=== PATIENT | male | born 1955 | race Caucasian/White ===

== ENCOUNTER 2020-03-24 05:57 | Inpatient (IN) | payer OTHER ==
[~2020-03-24] VITALS: Ht 180.3 cm; Wt 96.0 kg
[2020-03-24] VITALS (13 sets, daily range): BP systolic 116–166; BP diastolic 63–95
[2020-03-24] MEDS ORDERED: LORazepam 0.5 MG tablet PO PRN (06:15)
[2020-03-24] MEDS ORDERED: LIDOcaine/PRILOcaine 5gm cream TP ONE (06:15)
[2020-03-24] MEDS ORDERED: diphenhydrAMINE 25mg capsule PO PRN (06:15)
[2020-03-24] MEDS ORDERED: SIMV10TA98 PO (06:20)
[2020-03-24] MEDS ORDERED: BENA10TA74 PO (06:20)
[2020-03-24] MEDS ORDERED: ASPI81TA52 PO (06:20)
[2020-03-24] MEDS ORDERED: METO25TA6 PO (06:20)
[2020-03-24 06:52] LABS: BASOPHILS # (AUTO) 0.1 X10'3 (0-0.2); BASOPHILS % (AUTO) 0.9 % (0-1); EOSINOPHILS # (AUTO) 0.3 X10'3 (0-0.9); EOSINOPHILS % (AUTO) 3.4 % (0-6); HEMATOCRIT 44.5 % (42.0-52.0); LYMPHOCYTES # (AUTO) 2.1 X10'3 (1.1-4.8); LYMPHOCYTES % (AUTO) 28.6 % (21-51); MEAN CORPUSCULAR HEMOGLOBIN 30.2 PG (27.0-31.0); MEAN CORPUSCULAR HGB CONC 33.8 g/dL (33.0-36.5); MEAN CORPUSCULAR VOLUME 89.4 FL (78-98); MEAN PLATELET VOLUME 9.6 FL (7.4-10.4); MONOCYTES # (AUTO) 0.9 X10'3 (0-0.9); MONOCYTES % (AUTO) 12.3 % (2-12); NEUTROPHILS # (AUTO) 4.1 X10'3 (1.8-7.7); NEUTROPHILS % (AUTO) 54.8 % (42-75); PLATELET COUNT 192 X10'3 (140-440); RED BLOOD COUNT 4.98 X10'6 (4.70-6.10); RED CELL DISTRIBUTION WIDTH 13.1 % (11.5-14.5); WHITE BLOOD COUNT 7.4 X10'3 (4.5-11.0)
[2020-03-24] MEDS: normal saline 1,000 ML IV SCH ×2 (07:04→16:15)
[2020-03-24] MEDS ORDERED: LIDOcaine 1% (10mg/ml)w/preservative injection 20ml MDV ONE (07:26)
[2020-03-24] MEDS ORDERED: fentaNYL/PF 50MCG/1 ML 2ML syringe ONE (07:26)
[2020-03-24] MEDS ORDERED: heparin 1,000unit/ml 10ml vial 10 ML ONE (07:26)
[2020-03-24] MEDS ORDERED: verapamil 2.5 mg/ml inj IV ONE (07:26)
[2020-03-24] MEDS ORDERED: nitroGLYCERIN-Tridil 50MG/D5W 250 ML IV ONE (07:26)
[2020-03-24] MEDS ORDERED: iohexol 350MG/ML 100ml bottle IV ONE (07:26)
[2020-03-24] MEDS ORDERED: midazolam 2 mg/2 ml injection ONE ×2 (07:26→07:47)
[2020-03-24 07:34] LABS: ALBUMIN 3.6 G/DL (3.4-5.0); ANION GAP 7 (8-16); BLOOD UREA NITROGEN 21 MG/DL (7-18); BUN/CREATININE RATIO 16.9 (5.4-32.0); CALCIUM 8.9 MG/DL (8.5-10.1); CHLORIDE 106 MMOL/L (99-107); CREATININE 1.24 MG/DL (0.60-1.10); GLUCOSE 102 MG/DL (70-104); SODIUM 139 MMOL/L (135-145); TOTAL CARBON DIOXIDE 26.4 MMOL/L (24-32); eGFR 59 ML/MIN
[2020-03-24] MEDS ORDERED: OXAZEpam 15mg capsule PO PRN (09:35)
[2020-03-24] MEDS ORDERED: HYDROcodone/acetaminophen 5mg/325mg tablet PO PRN (09:35)
[2020-03-24] MEDS: normal saline 1000ml 1,000 ML IV SCH ×5 (09:35→19:41)
[2020-03-24] MEDS ORDERED: nitroGLYCERIN 0.4mg SUBLingual tab SL PRN (09:35)
[2020-03-24] MEDS ORDERED: ondansetron/PF 4mg/2ml inj IV PRN ×2 (09:35→12:40)
[2020-03-24] MEDS ORDERED: proCHLORperazine 10 MG/2 ml inj IV PRN (09:35)
[2020-03-24] MEDS ORDERED: HYDROcodone/acetaminophen 10/325mg tab PO PRN (09:35)
[2020-03-24] MEDS ORDERED: magnesium 4gm in 100ml NS 100 ML IV PRN (12:40)
[2020-03-24] MEDS ORDERED: magnesium 2GM in 50ml NS 50 ML IV PRN (12:40)
[2020-03-24] MEDS ORDERED: magnesium Cl slow-release 64mg tablet PO PRN (12:40)
[2020-03-24] MEDS ORDERED: potassium Cl 20 mEq SR tablet PO PRN ×2 (12:40)
[2020-03-24] MEDS ORDERED: mag hydrox/Alum hydrox/simeth 30ml oral suspension PO PRN (12:40)
[2020-03-24] MEDS ORDERED: potassium CL 10mEq/100ml bag 100 ML IV PRN ×2 (12:40)
[2020-03-24] MEDS ORDERED: acetaminophen 325mg tablet PO PRN (12:40)
[2020-03-24] MEDS ORDERED: magnesium hydroxide 30ml (MOM) UD suspension PO PRN (12:40)
--- NOTE | 2020-03-24 13:05 | NUR ---
Report received on patient from KIMI Young in short stay. Awaiting patient arrival on floor.
[2020-03-24] MEDS ORDERED: ringers solution, lacted 1,000 ML IV ONE (13:06)
--- NOTE | 2020-03-24 13:07 | NUR ---
Problems reprioritized. Patient report given, questions answered & plan of care reviewed with Yamilex BOLDEN.
--- NOTE | 2020-03-24 14:00 | NUR ---
Patient admitted to PCU 3117X. Patient amb[facility] from wheelchair to [facility], no signs of distress. Patient has no complaints of pain at this time, admit VS taken and are stable. MRSA swab taken. 2 RN skin check performed. IV NS infusing at ordered rate. Patient oriented to room and call light use. Tele monitor applied. Will continue to monitor.
--- NOTE | 2020-03-24 18:03 | NUR ---
Problems reprioritized. Patient report given, questions answered & plan of care reviewed with Calos BOLDEN.
--- NOTE | 2020-03-24 18:10 | NUR ---
Patient in room PCU 3025. I have received report from Yamilex BOLDEN and had the opportunity to ask questions and assume patient care.
[2020-03-24] MEDS: K and/or MAG REPLACEMENT MC SCH (19:27)
[2020-03-24] MEDS: heparin, porcine 5000 units/ml vial SQ SCH (19:40)
[2020-03-25 02:00] VITALS: BP 137/73
[2020-03-25] MEDS: normal saline 1,000 ML IV SCH ×3 (02:15→22:15)
[2020-03-25] MEDS ORDERED: aminocaproic acid 250 MG/1 ML inj. ONE (03:00)
[2020-03-25] MEDS ORDERED: albumin (human) 25% 100 ML IV solution IV ONE (03:00)
[2020-03-25] MEDS ORDERED: heparin 10,000 units/1 ML INJ ONE (03:00)
[2020-03-25] MEDS ORDERED: methylPREDNISolone sod succ 1000mg vial ONE (03:00)
[2020-03-25] MEDS ORDERED: calcium chloride 100 MG/1 ML inj IV ONE (03:00)
[2020-03-25] MEDS ORDERED: phenylephrine 10mg/ml inj. ONE (03:00)
[2020-03-25] MEDS ORDERED: LIDOcaine 2% (20 mg/ml) 5ml cardiac syringe ONE (03:00)
[2020-03-25] MEDS ORDERED: sodium bicarbonate 1 mEq/ml 50ml vial IV ONE (03:00)
[2020-03-25 05:35] LABS: BASOPHILS # (AUTO) 0.1 X10'3 (0-0.2); BASOPHILS % (AUTO) 0.6 % (0-1); EOSINOPHILS # (AUTO) 0.2 X10'3 (0-0.9); HEMATOCRIT 44.5 % (42.0-52.0); LYMPHOCYTES # (AUTO) 2.1 X10'3 (1.1-4.8); LYMPHOCYTES % (AUTO) 26.1 % (21-51); MEAN CORPUSCULAR HGB CONC 33.6 g/dL (33.0-36.5); MEAN CORPUSCULAR VOLUME 89.3 FL (78-98); MEAN PLATELET VOLUME 9.5 FL (7.4-10.4); MONOCYTES # (AUTO) 0.8 X10'3 (0-0.9); NEUTROPHILS % (AUTO) 60.3 % (42-75); PLATELET COUNT 196 X10'3 (140-440); RED BLOOD COUNT 4.99 X10'6 (4.70-6.10); RED CELL DISTRIBUTION WIDTH 13.4 % (11.5-14.5); WHITE BLOOD COUNT 8.2 X10'3 (4.5-11.0)
[2020-03-25 06:00] VITALS: BP 139/79
[2020-03-25] MEDS ORDERED: LORazepam 2 mg/ml vial IV ONE (06:00)
[2020-03-25] MEDS ORDERED: famotidine 20mg tablet PO ONE (06:00)
[2020-03-25 06:12] LABS: ALANINE AMINOTRANSFERASE 26 U/L (12-78); ALBUMIN 3.2 G/DL (3.4-5.0); ALKALINE PHOSPHATASE 78 IU/L (46-116); ANION GAP 8 (8-16); ASPARTATE AMINO TRANSFERASE 14 U/L (10-37); BILIRUBIN,TOTAL 0.5 MG/DL (0.1-1.0); BLOOD UREA NITROGEN 22 MG/DL (7-18); CALCIUM 8.9 MG/DL (8.5-10.1); CHLORIDE 106 MMOL/L (99-107); CHOL/HDL RATIO 5.2 (0.00-4.99); CHOLESTEROL 124 MG/DL (0-200); CREATININE 1.16 MG/DL (0.60-1.10); GLUCOSE 98 MG/DL (70-104); HDL CHOLESTEROL 24 MG/DL (35-60); LDL CHOLESTEROL 84 MG/DL (50-100); MAGNESIUM 1.8 MG/DL (1.5-2.4); SODIUM 139 MMOL/L (135-145); TOTAL CARBON DIOXIDE 25.3 MMOL/L (24-32); TOTAL PROTEIN 6.4 G/DL (6.4-8.2); TRIGLYCERIDES 153 MG/DL (20-135); eGFR 63 ML/MIN
--- NOTE | 2020-03-25 06:22 | NUR ---
Problems reprioritized. Patient report given, questions answered & plan of care reviewed with Dyan BOLDEN.
--- NOTE | 2020-03-25 06:30 | NUR ---
Patient in room PCU 3025. I have received report from Calos BOLDEN and had the opportunity to ask questions and assume patient care.
[2020-03-25 07:34] LABS: BASOPHILS % (AUTO) 0.4 % (0-1); EOSINOPHILS # (AUTO) 0.2 X10'3 (0-0.9); EOSINOPHILS % (AUTO) 2.8 % (0-6); HEMATOCRIT 44.8 % (42.0-52.0); HEMOGLOBIN 15.4 g/dl (14.0-17.9); LYMPHOCYTES # (AUTO) 2.2 X10'3 (1.1-4.8); MEAN CORPUSCULAR HEMOGLOBIN 30.7 PG (27.0-31.0); MEAN CORPUSCULAR HGB CONC 34.3 g/dL (33.0-36.5); MEAN CORPUSCULAR VOLUME 89.4 FL (78-98); MEAN PLATELET VOLUME 9.8 FL (7.4-10.4); MONOCYTES # (AUTO) 0.9 X10'3 (0-0.9); MONOCYTES % (AUTO) 11.5 % (2-12); NEUTROPHILS # (AUTO) 4.7 X10'3 (1.8-7.7); NEUTROPHILS % (AUTO) 58.3 % (42-75); PLATELET COUNT 196 X10'3 (140-440); RED BLOOD COUNT 5.01 X10'6 (4.70-6.10); RED CELL DISTRIBUTION WIDTH 13.3 % (11.5-14.5)
[2020-03-25 07:54] LABS: ALANINE AMINOTRANSFERASE 27 U/L (12-78); ALBUMIN 3.5 G/DL (3.4-5.0); ALBUMIN/GLOBULIN RATIO 1.1 (1.1-1.5); ALKALINE PHOSPHATASE 82 IU/L (46-116); ANION GAP 5 (8-16); ASPARTATE AMINO TRANSFERASE 16 U/L (10-37); BILIRUBIN,TOTAL 0.6 MG/DL (0.1-1.0); BLOOD UREA NITROGEN 20 MG/DL (7-18); BUN/CREATININE RATIO 16.7 (5.4-32.0); CALCIUM 8.6 MG/DL (8.5-10.1); CHLORIDE 105 MMOL/L (99-107); GLUCOSE 94 MG/DL (70-104); POTASSIUM 3.9 MMOL/L (3.5-5.1); SODIUM 138 MMOL/L (135-145); TOTAL CARBON DIOXIDE 28.4 MMOL/L (24-32); TOTAL PROTEIN 6.6 G/DL (6.4-8.2); eGFR 61 ML/MIN
[2020-03-25] MEDS: K and/or MAG REPLACEMENT MC SCH ×2 (08:00→19:24)
[2020-03-25] MEDS: heparin, porcine 5000 units/ml vial SQ SCH ×2 (10:14→19:26)
[2020-03-25 11:00] VITALS: BP 135/81
[2020-03-25 11:05] LABS: HEMOGLOBIN A1C 5.7 % (4.5-6.2)
[2020-03-25] MEDS: normal saline 1000ml 1,000 ML IV SCH ×2 (12:26→15:35)
[2020-03-25 15:00] VITALS: BP 142/81
[2020-03-25 18:00] VITALS: BP 142/92
--- NOTE | 2020-03-25 18:06 | NUR ---
Patient in room PCU 3025. I have received report from Dyan BOLDEN and had the opportunity to ask questions and assume patient care.
--- NOTE | 2020-03-25 18:06 | NUR ---
Problems reprioritized. Patient report given, questions answered & plan of care reviewed with Calos BOLDEN.
[2020-03-25] MEDS: metoprolol tartrate 25mg tablet PO SCH (19:25)
[2020-03-25] MEDS ORDERED: metoprolol tartrate 25mg tablet PO SCH (20:00)
[2020-03-25 22:00] VITALS: BP 111/75
[2020-03-26] MEDS: normal saline 1000ml 1,000 ML IV SCH ×3 (01:35→10:52)
[2020-03-26 02:00] VITALS: BP 140/74
[2020-03-26 06:00] VITALS: BP 142/86
[2020-03-26 06:10] LABS: BASOPHILS % (AUTO) 0.5 % (0-1); EOSINOPHILS # (AUTO) 0.3 X10'3 (0-0.9); EOSINOPHILS % (AUTO) 3.3 % (0-6); HEMATOCRIT 45.3 % (42.0-52.0); HEMOGLOBIN 15.6 g/dl (14.0-17.9); LYMPHOCYTES # (AUTO) 2.2 X10'3 (1.1-4.8); LYMPHOCYTES % (AUTO) 26.4 % (21-51); MEAN CORPUSCULAR HEMOGLOBIN 30.7 PG (27.0-31.0); MEAN CORPUSCULAR HGB CONC 34.4 g/dL (33.0-36.5); MEAN CORPUSCULAR VOLUME 89.1 FL (78-98); MEAN PLATELET VOLUME 9.8 FL (7.4-10.4); MONOCYTES # (AUTO) 0.9 X10'3 (0-0.9); MONOCYTES % (AUTO) 11.3 % (2-12); NEUTROPHILS # (AUTO) 4.8 X10'3 (1.8-7.7); NEUTROPHILS % (AUTO) 58.5 % (42-75); PLATELET COUNT 203 X10'3 (140-440); RED BLOOD COUNT 5.09 X10'6 (4.70-6.10); RED CELL DISTRIBUTION WIDTH 13.2 % (11.5-14.5); WHITE BLOOD COUNT 8.3 X10'3 (4.5-11.0)
--- NOTE | 2020-03-26 06:30 | NUR ---
Patient in room PCU 3010. I have received report from KIMI DIANE and had the opportunity to ask questions and assume patient care.
--- NOTE | 2020-03-26 06:42 | NUR ---
Problems reprioritized. Patient report given, questions answered & plan of care reviewed with Lalo RN.
[2020-03-26 06:46] LABS: ALANINE AMINOTRANSFERASE 26 U/L (12-78); ALBUMIN 3.5 G/DL (3.4-5.0); ALBUMIN/GLOBULIN RATIO 1.1 (1.1-1.5); ALKALINE PHOSPHATASE 82 IU/L (46-116); ANION GAP 8 (8-16); ASPARTATE AMINO TRANSFERASE 16 U/L (10-37); BILIRUBIN,TOTAL 0.6 MG/DL (0.1-1.0); BLOOD UREA NITROGEN 16 MG/DL (7-18); BUN/CREATININE RATIO 13.6 (5.4-32.0); CALCIUM 9.4 MG/DL (8.5-10.1); CHLORIDE 104 MMOL/L (99-107); CREATININE 1.18 MG/DL (0.60-1.10); GLUCOSE 93 MG/DL (70-104); MAGNESIUM 1.9 MG/DL (1.5-2.4); POTASSIUM 4.1 MMOL/L (3.5-5.1); SODIUM 138 MMOL/L (135-145); TOTAL CARBON DIOXIDE 26.1 MMOL/L (24-32); TOTAL PROTEIN 6.8 G/DL (6.4-8.2); eGFR 62 ML/MIN
[2020-03-26] MEDS ORDERED: atorvastatin 10mg tablet PO SCH (08:00)
[2020-03-26] MEDS ORDERED: aspirin 81mg tablet.DR PO SCH (08:00)
[2020-03-26] MEDS: K and/or MAG REPLACEMENT MC SCH ×2 (08:00→20:00)
[2020-03-26] MEDS ORDERED: lisinopril 10 MG tablet PO SCH (08:00)
[2020-03-26] MEDS: metoprolol tartrate 25mg tablet PO SCH ×2 (08:30→21:04)
[2020-03-26] MEDS: heparin, porcine 5000 units/ml vial SQ SCH ×2 (08:33→21:05)
[2020-03-26] MEDS ORDERED: MALTODEXTRIN/FRUCTOSE 0.68 KCAL/ML LIQUID 296ML BOTTLE PO ONE (09:30)
[2020-03-26] MEDS ORDERED: dextrose 50%-water 50ml dispensing syringe IV PRN (09:30)
[2020-03-26 11:00] VITALS: BP 142/83
[2020-03-26 13:21] LABS: CLARITY,URINE CLEAR (Clear); COLOR,URINE YELLOW (Yellow); GLUCOSE, URINE NEGATIVE (Neg); KETONES,URINE NEGATIVE (Neg); LEUKOCYTE ESTERASE ,URINE NEGATIVE (Neg); NITRITES, URINE NEGATIVE (Neg); OCCULT BLOOD,URINE NEGATIVE (Neg); PROTEIN,URINE NEGATIVE (Neg)
[2020-03-26 13:25] LABS: UA COLLECTION TYPE NON-SPECIFIED
[2020-03-26 15:00] VITALS: BP 138/79
[2020-03-26 18:00] VITALS: BP 149/82
--- NOTE | 2020-03-26 18:17 | NUR ---
Patient in room PCU 3010. I have received report from ABRAHAM BOLDEN and had the opportunity to ask questions and assume patient care.
--- NOTE | 2020-03-26 18:59 | NUR ---
REVIEWING CHECKLIST FOR 1ST CASE CABG IN AM- BLOOD BANK AND RT CALLED, REVIEWING CHECKLIST FOR ALL PRE-PROCEDURE NEEDS; DISCUSSED PRE AND P[OST OPERATIVE CARE AND REVIEWED CONSENT WITH PATIENT.
[2020-03-26 20:15] LABS: ABG BASE EXCESS 0.1 mmol/L (-2.0-3.0); ABG OXYGEN SATURATION 93.7 % (95-98); ABG PH (T) 7.461 (7.350-7.450); ABG PO2 (T) 64.4 mmHg (83-108); ALLEN'S TEST POSITIVE; FCOHb 0.4 % (0.5-1.5); FMetHb 0.1 % (0.3-1.12); FO2Hb 93.2 % (94-100); TOTAL HEMOGLOBIN 16.2 G/dl (14.0-17.9)
[2020-03-26 23:00] VITALS: BP 133/79
[2020-03-27] VITALS (18 sets, daily range): BP systolic 102–239; BP diastolic 49–77
[2020-03-27 02:45] LABS: PRE OP PROTIME 10.3 SECONDS (9.0-12.0)
[2020-03-27 02:46] LABS: ALANINE AMINOTRANSFERASE 32 U/L (12-78); ALBUMIN 3.6 G/DL (3.4-5.0); ALBUMIN/GLOBULIN RATIO 1.1 (1.1-1.5); ALKALINE PHOSPHATASE 88 IU/L (46-116); ANION GAP 8 (8-16); ASPARTATE AMINO TRANSFERASE 20 U/L (10-37); BILIRUBIN,TOTAL 0.5 MG/DL (0.1-1.0); BLOOD UREA NITROGEN 18 MG/DL (7-18); BUN/CREATININE RATIO 16.4 (5.4-32.0); CALCIUM 9.5 MG/DL (8.5-10.1); CHLORIDE 104 MMOL/L (99-107); GLUCOSE 99 MG/DL (70-104); SODIUM 137 MMOL/L (135-145); TOTAL CARBON DIOXIDE 24.8 MMOL/L (24-32); eGFR 67 ML/MIN
[2020-03-27 02:51] LABS: BASOPHILS # (AUTO) 0.1 X10'3 (0-0.2); BASOPHILS % (AUTO) 0.7 % (0-1); EOSINOPHILS # (AUTO) 0.3 X10'3 (0-0.9); EOSINOPHILS % (AUTO) 3.7 % (0-6); HEMATOCRIT 47.6 % (42.0-52.0); LYMPHOCYTES # (AUTO) 2.4 X10'3 (1.1-4.8); LYMPHOCYTES % (AUTO) 26.8 % (21-51); MEAN CORPUSCULAR HEMOGLOBIN 30.3 PG (27.0-31.0); MEAN CORPUSCULAR HGB CONC 33.6 g/dL (33.0-36.5); MEAN PLATELET VOLUME 9.8 FL (7.4-10.4); MONOCYTES # (AUTO) 1.1 X10'3 (0-0.9); MONOCYTES % (AUTO) 12.1 % (2-12); NEUTROPHILS % (AUTO) 56.7 % (42-75); PLATELET COUNT 212 X10'3 (140-440); RED BLOOD COUNT 5.28 X10'6 (4.70-6.10); RED CELL DISTRIBUTION WIDTH 13.7 % (11.5-14.5); WHITE BLOOD COUNT 8.8 X10'3 (4.5-11.0)
[2020-03-27] MEDS ORDERED: mupirocin 2% nasal ointment 1gm UD NS SCH (05:00)
[2020-03-27] MEDS ORDERED: ceFAZolin 1000mg inj ONE (05:10)
[2020-03-27] MEDS ORDERED: cefazolin/dext.iso 2gm/50ml 50 ML IV ONE (05:30)
[2020-03-27] MEDS ORDERED: vancomycin/NS 1 GM ADD-VANTAGE 250 ML IV ONE (05:30)
[2020-03-27] MEDS ORDERED: gabapentin 400mg capsule PO ONE (05:30)
[2020-03-27] MEDS ORDERED: MIDAZolam 1mg/ml 10ml vial ONE (06:41)
[2020-03-27] MEDS ORDERED: fentaNYL /PF 50mcg/ml 5ml ampule ONE ×5 (06:41→09:23)
--- NOTE | 2020-03-27 06:41 | NUR ---
Patient in room PCU 3010. I have received report from Suzanne BOLDEN and had the opportunity to ask questions and assume patient care.
[2020-03-27] MEDS ORDERED: LIDOcaine 2% (20mg/ml) 5ml vial ONE (06:43)
[2020-03-27] MEDS ORDERED: pancuronium br 1mg/ml inj IV ONE (06:43)
[2020-03-27] MEDS ORDERED: propofol inj 20 ML IV ONE (06:43)
[2020-03-27] MEDS ORDERED: sevoflurane 250ml liquid IH ONE (06:50)
[2020-03-27] MEDS ORDERED: aminocaproic acid 250 MG/1 ML inj. ONE (06:50)
[2020-03-27] MEDS ORDERED: DOPamine/D5W 400mg/250ml bag IV ONE (06:50)
[2020-03-27] MEDS ORDERED: protamine sulf. 10mg/ml inj. IV ONE (06:50)
[2020-03-27] MEDS ORDERED: labetalol 20mg/4ml (5mg/ml) syringe IV ONE ×2 (06:50→07:41)
[2020-03-27] MEDS ORDERED: phenylephrine 10mg/ml inj. ONE (06:50)
[2020-03-27] MEDS ORDERED: nitroGLYCERIN in D5W 50mg/250ml (Tridil) infusion IV ONE (06:50)
--- NOTE | 2020-03-27 06:53 | NUR ---
Problems reprioritized. Patient report given, questions answered & plan of care reviewed with SHANE BOLDEN.
[2020-03-27] MEDS ORDERED: ePHEDrine 50MG/ML INJ. ONE (07:04)
[2020-03-27 07:21] LABS: ABG BASE EXCESS -2.1 mmol/L (-2.0-3.0); ABG HCO3 22.3 mmol/L (22.0-26.0); ABG OXYGEN SATURATION 99.4 % (95-98); ABG PH 7.397 (7.350-7.450); ABG PO2 273.4 mmHg (60.0-100.0); CL (ABG) 103 mmol/L (99-107); FCOHb 0.4 % (0.5-1.5); FMetHb 0.3 % (0.3-1.12); FO2Hb 98.7 % (94-100); GLUCOSE (ABG) 93 mg/dl (70-104); IONIZED CA (ABG) 1.17 mmol/L (1.03-1.32); K (ABG) 3.7 mmol/L (3.3-5.1); NA (ABG) 134 mmol/L (135-145); TOTAL HEMOGLOBIN 15.5 G/dl (14.0-17.9)
[2020-03-27] MEDS ORDERED: heparin 10,000 units/1 ML INJ IR ONE (07:43)
[2020-03-27] MEDS ORDERED: papaverine 30 mg/ml 2ml inj. IA ONE (07:43)
[2020-03-27 07:50] LABS: ACT @ 1.70 U 245 SEC (193-297); ACT @ 2.84 U 307 SEC (260-420); BASELINE ACT 149 SEC (101-148); PATIENT WEIGHT 93.0k KG
[2020-03-27] MEDS ORDERED: dextrose 50%-water 50ml dispensing syringe IV ONE (08:14)
[2020-03-27 08:16] LABS: ABG BASE EXCESS VENOUS -5.6 mmol/L; ABG HCO3 VENOUS 19.5 mmol/L; ABG PCO2 VENOUS 36.9 mmHg; ABG PO2 VENOUS 42.3 mmHg; CL (ABG) 102 mmol/L (99-107); FCOHb VENOUS 0.7 %; FHHb VENOUS 21.8 %; FMetHb VENOUS 0.1 %; FO2Hb VENOUS 77.4 %; GLUCOSE (ABG) 66 mg/dl (70-104); IONIZED CA (ABG) 1.14 mmol/L (1.03-1.32); K (ABG) 3.9 mmol/L (3.3-5.1); NA (ABG) 131 mmol/L (135-145); TOTAL HEMOGLOBIN 12.2 G/dl (14.0-17.9)
[2020-03-27 08:35] LABS: ABG BASE EXCESS -0.1 mmol/L (-2.0-3.0); ABG HCO3 24.2 mmol/L (22.0-26.0); ABG OXYGEN SATURATION 99.7 % (95-98); ABG PCO2 38.1 mmHg (35.0-45.0); ABG PH 7.421 (7.350-7.450); ABG PO2 399.1 mmHg (60.0-100.0); CL (ABG) 99 mmol/L (99-107); FCOHb 0.3 % (0.5-1.5); FMetHb 0.3 % (0.3-1.12); FO2Hb 99.1 % (94-100); GLUCOSE (ABG) 126 mg/dl (70-104); IONIZED CA (ABG) 1.02 mmol/L (1.03-1.32); K (ABG) 4.7 mmol/L (3.3-5.1); NA (ABG) 130 mmol/L (135-145); TOTAL HEMOGLOBIN 11.3 G/dl (14.0-17.9)
[2020-03-27 08:40] LABS: ABG BASE EXCESS VENOUS -1.5 mmol/L; ABG HCO3 VENOUS 23.1 mmol/L; ABG PCO2 VENOUS 38.5 mmHg; ABG PO2 VENOUS 59.1 mmHg; CL (ABG) 99 mmol/L (99-107); FCOHb VENOUS 0.8 %; FHHb VENOUS 9.8 %; FMetHb VENOUS 0.3 %; FO2Hb VENOUS 89.1 %; GLUCOSE (ABG) 122 mg/dl (70-104); IONIZED CA (ABG) 1.05 mmol/L (1.03-1.32); K (ABG) 4.6 mmol/L (3.3-5.1); NA (ABG) 130 mmol/L (135-145); TOTAL HEMOGLOBIN 11.8 G/dl (14.0-17.9)
[2020-03-27 09:06] LABS: ABG HCO3 29.7 mmol/L (22.0-26.0); ABG OXYGEN SATURATION 98.8 % (95-98); ABG PCO2 44.8 mmHg (35.0-45.0); ABG PO2 234.9 mmHg (60.0-100.0); CL (ABG) 97 mmol/L (99-107); FCOHb 0.3 % (0.5-1.5); FMetHb 0.6 % (0.3-1.12); FO2Hb 97.9 % (94-100); GLUCOSE (ABG) 118 mg/dl (70-104); IONIZED CA (ABG) 0.98 mmol/L (1.03-1.32); K (ABG) 4.7 mmol/L (3.3-5.1); NA (ABG) 129 mmol/L (135-145); TOTAL HEMOGLOBIN 11.4 G/dl (14.0-17.9)
[2020-03-27] MEDS ORDERED: heparin 1,000unit/ml 10ml vial 10 ML ONE (09:23)
[2020-03-27 09:26] LABS: ABG BASE EXCESS 0.2 mmol/L (-2.0-3.0); ABG HCO3 25.1 mmol/L (22.0-26.0); ABG OXYGEN SATURATION 97.2 % (95-98); ABG PCO2 41.4 mmHg (35.0-45.0); ABG PO2 105.9 mmHg (60.0-100.0); CL (ABG) 100 mmol/L (99-107); FCOHb 0.3 % (0.5-1.5); FMetHb 0.5 % (0.3-1.12); FO2Hb 96.4 % (94-100); GLUCOSE (ABG) 120 mg/dl (70-104); IONIZED CA (ABG) 1.54 mmol/L (1.03-1.32); K (ABG) 5.2 mmol/L (3.3-5.1); NA (ABG) 129 mmol/L (135-145)
[2020-03-27] MEDS ORDERED: insulin glargine (Lantus) pen - multi-dose SQ PRN ×2 (09:30→10:20)
[2020-03-27 09:51] LABS: ABG BASE EXCESS VENOUS -1.8 mmol/L; ABG HCO3 VENOUS 22.2 mmol/L; ABG PO2 VENOUS 40.6 mmHg; CL (ABG) 101 mmol/L (99-107); FCOHb VENOUS 0.3 %; FHHb VENOUS 22.4 %; FMetHb VENOUS 0.7 %; FO2Hb VENOUS 76.6 %; GLUCOSE (ABG) 118 mg/dl (70-104); IONIZED CA (ABG) 1.22 mmol/L (1.03-1.32); K (ABG) 4.5 mmol/L (3.3-5.1); NA (ABG) 131 mmol/L (135-145); TOTAL HEMOGLOBIN 11.9 G/dl (14.0-17.9)
[2020-03-27] MEDS ORDERED: sodium phosphate inj. 30 MMOL in dextrose 5%-water 250 ML IV PRN (10:20)
[2020-03-27] MEDS ORDERED: nitroGLYCERIN-Tridil 50MG/D5W 250 ML IV PRN (10:20)
[2020-03-27] MEDS ORDERED: pantoprazole 40 MG vial IV ONE (10:20)
[2020-03-27] MEDS ORDERED: metoclopramide 5 mg/ml inj IV PRN (10:20)
[2020-03-27] MEDS ORDERED: Neutra Phos packet PO PRN (10:20)
[2020-03-27] MEDS ORDERED: acetaminophen 325mg tablet PO PRN ×2 (10:20)
[2020-03-27] MEDS ORDERED: Insulin Reg/NS 100units/100mL 100 ML IV SCH (10:20)
[2020-03-27] MEDS ORDERED: DOPamine 400mg/D5W 250ml 250 ML IV PRN (10:20)
[2020-03-27] MEDS ORDERED: dextrose 50%-water 50ml dispensing syringe IV PRN (10:20)
[2020-03-27] MEDS ORDERED: mineral oil 133ml enema RC PRN (10:20)
[2020-03-27] MEDS ORDERED: sodium phosphate inj. 15 MMOL in dextrose 5%-water 250 ML IV PRN (10:20)
[2020-03-27] MEDS ORDERED: magnesium hydroxide 30ml (MOM) UD suspension PO PRN (10:20)
[2020-03-27] MEDS ORDERED: morphine 4 MG/ML inj SYRINge IV PRN (10:20)
[2020-03-27] MEDS ORDERED: magnesium 2GM in 50ml NS 50 ML IV PRN (10:20)
[2020-03-27] MEDS ORDERED: HYDROcodone/acetaminophen 10/325mg tab PO PRN (10:20)
[2020-03-27] MEDS ORDERED: bisacodyl 10mg suppository rectal RC PRN (10:20)
[2020-03-27] MEDS ORDERED: ondansetron/PF 4mg/2ml inj IV PRN (10:20)
[2020-03-27] MEDS ORDERED: magnesium citrate 296ml oral solution PO PRN (10:20)
[2020-03-27] MEDS ORDERED: niCARDipine-NS 40mg/200ml IVPB 200 ML IV PRN (10:20)
[2020-03-27] MEDS ORDERED: potassium Cl 20 mEq SR tablet PO PRN (10:20)
[2020-03-27] MEDS ORDERED: normal saline 250ml IV soln 250 ML IV PRN (10:20)
--- NOTE | 2020-03-27 10:30 | NUR ---
Received to room , accompanied by MDs and surgical crew. Placed on ventilator, to grain combine driver, arterial line and PA line pressure monitored. Chest tubes to suction at 20 cm. Lee cath to gravity drainage. Dressings are dry and intact. See assessment record. All vasoactive drugs are infusing via central line.
[2020-03-27 10:45] LABS: ABG BASE EXCESS -1.7 mmol/L (-2.0-3.0); ABG HCO3 24.4 mmol/L (22.0-26.0); ABG OXYGEN SATURATION 95.9 % (95-98); ABG PCO2 (T) 46.5 mmHg (35.0-45.0); ABG PH (T) 7.338 (7.350-7.450); ABG PO2 (T) 84.5 mmHg (83-108); FCOHb 0.2 % (0.5-1.5); FMetHb 0.4 % (0.3-1.12); FO2Hb 95.3 % (94-100); PEEP 5 cm H2O; RESPIRATORY RATE 12 b/min; TIDAL VOLUME 650 mL; TOTAL HEMOGLOBIN 15.2 G/dl (14.0-17.9)
[2020-03-27] MEDS: sodium chloride 0.45% 1,000 ML IV SCH (10:53)
[2020-03-27 10:56] LABS: BASOPHILS % (AUTO) 0.2 % (0-1); EOSINOPHILS # (AUTO) 0.1 X10'3 (0-0.9); EOSINOPHILS % (AUTO) 0.7 % (0-6); HEMOGLOBIN 14.5 g/dl (14.0-17.9); LYMPHOCYTES # (AUTO) 1.3 X10'3 (1.1-4.8); LYMPHOCYTES % (AUTO) 7.1 % (21-51); MEAN CORPUSCULAR HGB CONC 33.6 g/dL (33.0-36.5); MEAN CORPUSCULAR VOLUME 89.4 FL (78-98); MEAN PLATELET VOLUME 9.2 FL (7.4-10.4); MONOCYTES # (AUTO) 1.1 X10'3 (0-0.9); MONOCYTES % (AUTO) 6.3 % (2-12); NEUTROPHILS # (AUTO) 15.5 X10'3 (1.8-7.7); NEUTROPHILS % (AUTO) 85.7 % (42-75); PLATELET COUNT 137 X10'3 (140-440); RED BLOOD COUNT 4.81 X10'6 (4.70-6.10); RED CELL DISTRIBUTION WIDTH 13.5 % (11.5-14.5); WHITE BLOOD COUNT 18.1 X10'3 (4.5-11.0)
[2020-03-27 11:06] LABS: PARTIAL THROMBOPLASTIN TIME 26 SECONDS (22-32)
[2020-03-27 11:18] LABS: ALANINE AMINOTRANSFERASE 23 U/L (12-78); ALBUMIN 3.3 G/DL (3.4-5.0); ALBUMIN/GLOBULIN RATIO 1.5 (1.1-1.5); ALKALINE PHOSPHATASE 57 IU/L (46-116); ANION GAP 7 (8-16); ASPARTATE AMINO TRANSFERASE 31 U/L (10-37); BLOOD UREA NITROGEN 13 MG/DL (7-18); BUN/CREATININE RATIO 11.8 (5.4-32.0); CALCIUM 8.7 MG/DL (8.5-10.1); CHLORIDE 106 MMOL/L (99-107); GLUCOSE 152 MG/DL (70-104); MAGNESIUM 2.3 MG/DL (1.5-2.4); PHOSPHORUS 1.6 MG/DL (2.3-4.5); SODIUM 140 MMOL/L (135-145); TOTAL CARBON DIOXIDE 26.8 MMOL/L (24-32); TOTAL PROTEIN 5.5 G/DL (6.4-8.2); eGFR 67 ML/MIN
[2020-03-27 11:19] LABS: POTASSIUM 4.3 MMOL/L (3.5-5.1)
[2020-03-27] MEDS: potassium Cl 20mEq/100mL bag 100 ML IV PRN ×4 (11:28→20:27)
[2020-03-27] MEDS: morphine 4 MG/ML inj SYRINge IV PRN ×4 (11:38→21:50)
--- NOTE | 2020-03-27 12:19 | NUR ---
CABG Consult: Pt s/p CABGx3; will need CABG/HH diet eds once clinically stable post-op. Addendum: 03/27/20 at [address] Amended: Links added.
--- NOTE | 2020-03-27 12:20 | NUR ---
Pt extubated. Voice quality good. Respirations are even and unlabored. Respiratory rate 16, SpO2 93% on 4 L/min O2 via NC, lungs CTA. Addendum: 03/27/20 at 1801 by Zackary Cardoza RN Wrong time. Pt extubated at 1720 hrs.
[2020-03-27 12:41] LABS: ACTIVATED CLOTTING TIME 112 SEC (101-148)
[2020-03-27] MEDS: albumin (Human) 5% 250ml 250 ML IV PRN ×3 (13:18→19:19)
[2020-03-27] MEDS: gabapentin 300mg capsule PO SCH ×2 (13:28→21:16)
[2020-03-27] MEDS: ceFAZolin 1GM/D5W- ADD-VANTAGE 50 ML IV SCH (16:41)
[2020-03-27 17:16] LABS: ABG BASE EXCESS -5.7 mmol/L (-2.0-3.0); ABG HCO3 17.1 mmol/L (22.0-26.0); ABG OXYGEN SATURATION 94.7 % (95-98); ABG PCO2 (T) 26.6 mmHg (35.0-45.0); ABG PH (T) 7.426 (7.350-7.450); ABG PO2 (T) 70.7 mmHg (83-108); FCOHb 0.1 % (0.5-1.5); FMetHb 0.1 % (0.3-1.12); FO2Hb 94.5 % (94-100); PEEP 5 cm H2O; TOTAL HEMOGLOBIN 13.5 G/dl (14.0-17.9)
--- NOTE | 2020-03-27 17:20 | NUR ---
Pt extubated. Voice quality good. Respirations are even and unlabored. Respiratory rate 16, SpO2 93% on 4 L/min O2 via NC, lungs CTA.
[2020-03-27 17:33] LABS: BASOPHILS % (AUTO) 0.1 % (0-1); EOSINOPHILS % (AUTO) 0 % (0-6); HEMATOCRIT 38.3 % (42.0-52.0); HEMOGLOBIN 12.8 g/dl (14.0-17.9); LYMPHOCYTES # (AUTO) 0.6 X10'3 (1.1-4.8); LYMPHOCYTES % (AUTO) 3.2 % (21-51); MEAN CORPUSCULAR HEMOGLOBIN 30.1 PG (27.0-31.0); MEAN CORPUSCULAR HGB CONC 33.5 g/dL (33.0-36.5); MEAN CORPUSCULAR VOLUME 89.9 FL (78-98); MEAN PLATELET VOLUME 9.2 FL (7.4-10.4); MONOCYTES # (AUTO) 1.2 X10'3 (0-0.9); MONOCYTES % (AUTO) 6.8 % (2-12); NEUTROPHILS # (AUTO) 15.7 X10'3 (1.8-7.7); NEUTROPHILS % (AUTO) 89.9 % (42-75); PLATELET COUNT 136 X10'3 (140-440); RED BLOOD COUNT 4.26 X10'6 (4.70-6.10); RED CELL DISTRIBUTION WIDTH 13.4 % (11.5-14.5); WHITE BLOOD COUNT 17.5 X10'3 (4.5-11.0)
[2020-03-27 17:50] LABS: ALBUMIN 3.4 G/DL (3.4-5.0); ANION GAP 13 (8-16); BLOOD UREA NITROGEN 14 MG/DL (7-18); BUN/CREATININE RATIO 9.9 (5.4-32.0); CALCIUM 7.8 MG/DL (8.5-10.1); CHLORIDE 108 MMOL/L (99-107); CREATININE 1.41 MG/DL (0.60-1.10); GLUCOSE 155 MG/DL (70-104); MAGNESIUM 1.8 MG/DL (1.5-2.4); PHOSPHORUS 2.1 MG/DL (2.3-4.5); POTASSIUM 4.1 MMOL/L (3.5-5.1); SODIUM 141 MMOL/L (135-145); TOTAL CARBON DIOXIDE 19.8 MMOL/L (24-32); eGFR 51 ML/MIN
--- NOTE | 2020-03-27 18:37 | NUR ---
Patient in room ICU 2039. I have received report from Reagan BOLDEN and had the opportunity to ask questions and assume patient care. Addendum: 03/27/20 at 1838 by Prerna Redding RN Amended: Links added.
[2020-03-27] MEDS: magnesium 4gm in 100ml NS 100 ML IV PRN (19:57)
[2020-03-27] MEDS: mupirocin 2% nasal ointment 1gm UD NS SCH (21:16)
[2020-03-27] MEDS: sennosides/docusate sodium tablet PO SCH (21:16)
[2020-03-27] MEDS: vancomycin/NS 1 GM ADD-VANTAGE 250 ML IV SCH (21:50)
[2020-03-28] VITALS (23 sets, daily range): BP systolic 104–134; BP diastolic 56–77
[2020-03-28] MEDS: ceFAZolin 1GM/D5W- ADD-VANTAGE 50 ML IV SCH ×3 (00:08→15:59)
--- NOTE | 2020-03-28 00:48 | NUR ---
Patient appears to be sleeping. Vital signs stable. Will continue to monitor.
[2020-03-28] MEDS: morphine 4 MG/ML inj SYRINge IV PRN (01:10)
[2020-03-28 03:00] LABS: BASOPHILS % (AUTO) 0.1 % (0-1); EOSINOPHILS % (AUTO) 0 % (0-6); HEMATOCRIT 36.6 % (42.0-52.0); HEMOGLOBIN 12.4 g/dl (14.0-17.9); LYMPHOCYTES # (AUTO) 0.8 X10'3 (1.1-4.8); LYMPHOCYTES % (AUTO) 4.5 % (21-51); MEAN CORPUSCULAR HEMOGLOBIN 30.5 PG (27.0-31.0); MEAN CORPUSCULAR HGB CONC 33.8 g/dL (33.0-36.5); MEAN CORPUSCULAR VOLUME 90.1 FL (78-98); MEAN PLATELET VOLUME 9.9 FL (7.4-10.4); MONOCYTES # (AUTO) 1.6 X10'3 (0-0.9); MONOCYTES % (AUTO) 8.5 % (2-12); NEUTROPHILS # (AUTO) 16.6 X10'3 (1.8-7.7); NEUTROPHILS % (AUTO) 86.9 % (42-75); PLATELET COUNT 127 X10'3 (140-440); RED BLOOD COUNT 4.06 X10'6 (4.70-6.10); RED CELL DISTRIBUTION WIDTH 13.6 % (11.5-14.5)
[2020-03-28 03:05] LABS: PARTIAL THROMBOPLASTIN TIME 26 SECONDS (22-32)
[2020-03-28 03:10] LABS: ALANINE AMINOTRANSFERASE 21 U/L (12-78); ALBUMIN 3.7 G/DL (3.4-5.0); ALBUMIN/GLOBULIN RATIO 1.8 (1.1-1.5); ALKALINE PHOSPHATASE 45 IU/L (46-116); ANION GAP 10 (8-16); ASPARTATE AMINO TRANSFERASE 32 U/L (10-37); BILIRUBIN,TOTAL 0.6 MG/DL (0.1-1.0); BLOOD UREA NITROGEN 13 MG/DL (7-18); BUN/CREATININE RATIO 11.5 (5.4-32.0); CHLORIDE 106 MMOL/L (99-107); CREATININE 1.13 MG/DL (0.60-1.10); GLUCOSE 140 MG/DL (70-104); MAGNESIUM 2.9 MG/DL (1.5-2.4); PHOSPHORUS 3.3 MG/DL (2.3-4.5); POTASSIUM 4.4 MMOL/L (3.5-5.1); SODIUM 140 MMOL/L (135-145); TOTAL CARBON DIOXIDE 23.7 MMOL/L (24-32); TOTAL PROTEIN 5.8 G/DL (6.4-8.2); eGFR 65 ML/MIN
[2020-03-28] MEDS: potassium Cl 20mEq/100mL bag 100 ML IV PRN (04:17)
[2020-03-28] MEDS: HYDROcodone/acetaminophen 10/325mg tab PO PRN ×3 (05:51→18:51)
--- NOTE | 2020-03-28 06:21 | NUR ---
Problems reprioritized. Patient report given, questions answered & plan of care reviewed with Reagan BOLDEN.
[2020-03-28] MEDS: Insulin Reg/NS 100units/100mL 100 ML IV SCH ×2 (06:27→14:50)
--- NOTE | 2020-03-28 06:30 | NUR ---
Patient in room ICU 2039. I have received report from KIMI Graff and had the opportunity to ask questions and assume patient care.
--- NOTE | 2020-03-28 07:11 | NUR ---
Arterial line discontinued, nonfunctional.
[2020-03-28] MEDS: mupirocin 2% nasal ointment 1gm UD NS SCH ×2 (08:00→19:52)
[2020-03-28] MEDS: pantoprazole 40mg Tablet.DR PO SCH (08:06)
[2020-03-28] MEDS: metoprolol tartrate 12.5mg (1/2 tablet) PO SCH ×2 (08:08→19:52)
[2020-03-28] MEDS: gabapentin 300mg capsule PO SCH ×3 (08:08→19:51)
[2020-03-28] MEDS: atorvastatin 10mg tablet PO SCH (08:09)
[2020-03-28] MEDS: aspirin 325mg tablet, delayed-release (Ecotrin) PO SCH (08:09)
[2020-03-28] MEDS: sennosides/docusate sodium tablet PO SCH ×2 (08:09→19:52)
--- NOTE | 2020-03-28 08:15 | NUR ---
Pt up to chair eating breakfast, states pain is "mild". Pt is enthusiastically using IS; achieving volumes of 1000mL. KATRINA Garcia in to round on pt.
[2020-03-28] MEDS: vancomycin/NS 1 GM ADD-VANTAGE 250 ML IV SCH ×2 (09:01→19:52)
--- NOTE | 2020-03-28 09:10 | NUR ---
PA line discontinued.
--- NOTE | 2020-03-28 10:30 | NUR ---
Reported off to KIMI Landis
--- NOTE | 2020-03-28 18:36 | NUR ---
Patient in room ICU 2039. I have received report from Yanira BOLDEN and had the opportunity to ask questions and assume patient care. Addendum: 03/28/20 at 1837 by Prerna Redding RN Amended: Links added.
--- NOTE | 2020-03-28 21:15 | NUR ---
Assisted patient to bed from bedside commode with 2 person assist. Tolerated transfer well.
[2020-03-29] VITALS (24 sets, daily range): BP systolic 109–148; BP diastolic 59–76
[2020-03-29] MEDS: ceFAZolin 1GM/D5W- ADD-VANTAGE 50 ML IV SCH (01:32)
[2020-03-29] MEDS: HYDROcodone/acetaminophen 10/325mg tab PO PRN ×4 (01:33→21:56)
[2020-03-29 02:59] LABS: BASOPHILS % (AUTO) 0.1 % (0-1); EOSINOPHILS % (AUTO) 0 % (0-6); HEMATOCRIT 33.2 % (42.0-52.0); HEMOGLOBIN 11.2 g/dl (14.0-17.9); LYMPHOCYTES # (AUTO) 0.9 X10'3 (1.1-4.8); LYMPHOCYTES % (AUTO) 4.6 % (21-51); MEAN CORPUSCULAR HEMOGLOBIN 30.6 PG (27.0-31.0); MEAN CORPUSCULAR HGB CONC 33.9 g/dL (33.0-36.5); MEAN CORPUSCULAR VOLUME 90.1 FL (78-98); MONOCYTES # (AUTO) 2.2 X10'3 (0-0.9); MONOCYTES % (AUTO) 11.4 % (2-12); NEUTROPHILS # (AUTO) 15.9 X10'3 (1.8-7.7); NEUTROPHILS % (AUTO) 83.9 % (42-75); PLATELET COUNT 111 X10'3 (140-440); RED BLOOD COUNT 3.68 X10'6 (4.70-6.10); RED CELL DISTRIBUTION WIDTH 13.6 % (11.5-14.5); WHITE BLOOD COUNT 18.9 X10'3 (4.5-11.0)
[2020-03-29 03:16] LABS: ALBUMIN 3.2 G/DL (3.4-5.0); ANION GAP 4 (8-16); BLOOD UREA NITROGEN 22 MG/DL (7-18); BUN/CREATININE RATIO 18.5 (5.4-32.0); CALCIUM 7.9 MG/DL (8.5-10.1); CHLORIDE 104 MMOL/L (99-107); CREATININE 1.19 MG/DL (0.60-1.10); GLUCOSE 134 MG/DL (70-104); MAGNESIUM 2.1 MG/DL (1.5-2.4); PHOSPHORUS 2.5 MG/DL (2.3-4.5); POTASSIUM 4.5 MMOL/L (3.5-5.1); SODIUM 136 MMOL/L (135-145); TOTAL CARBON DIOXIDE 27.9 MMOL/L (24-32); eGFR 62 ML/MIN
[2020-03-29 03:52] LABS: TOTAL CELLS COUNTED 100
[2020-03-29 03:53] LABS: PLATELET ESTIMATE DECREASED
--- NOTE | 2020-03-29 06:30 | NUR ---
Problems reprioritized. Patient report given, questions answered & plan of care reviewed with Russ BOLDEN.
[2020-03-29] MEDS: gabapentin 300mg capsule PO SCH (07:41)
[2020-03-29] MEDS: sennosides/docusate sodium tablet PO SCH ×2 (07:41→20:45)
[2020-03-29] MEDS: metoprolol tartrate 12.5mg (1/2 tablet) PO SCH ×2 (07:42→20:45)
[2020-03-29] MEDS: atorvastatin 10mg tablet PO SCH (07:42)
[2020-03-29] MEDS: aspirin 325mg tablet, delayed-release (Ecotrin) PO SCH (07:42)
[2020-03-29] MEDS: mupirocin 2% nasal ointment 1gm UD NS SCH (07:43)
[2020-03-29] MEDS: pantoprazole 40mg Tablet.DR PO SCH (07:43)
[2020-03-29] MEDS ORDERED: furosemide 40mg/4ml inj IV ONE (10:10)
[2020-03-29] MEDS: sodium chloride 0.45% 1,000 ML IV SCH (15:52)
--- NOTE | 2020-03-29 16:23 | NUR ---
CABG Consult: Pt s/p CABGx3 on 03/27; visited patient at bedside and given written heart healthy education handout and written post cardiac surgery education handout with verbal review. Eating well, 75-100% PO intake. Meeting nutrition needs. Last BM 03/29, small, is receiving routine bowel care. Will continue to follow. Recommend: 1. continue no concentrated sweets diet 2. routine bowel care 3. weight per rx Addendum: 03/29/20 at [address] Amended: Links added.
--- NOTE | 2020-03-29 18:00 | NUR ---
Problems reprioritized. Patient report given, questions answered & plan of care reviewed with KIMI Teixeira.
--- NOTE | 2020-03-29 18:30 | NUR ---
Patient in room ICU 2039. I have received report from Marianna LARSEN, and had the opportunity to ask questions and assume patient care.
[2020-03-29] MEDS: Insulin Reg/NS 100units/100mL 100 ML IV SCH (23:45)
[2020-03-30] VITALS (23 sets, daily range): BP systolic 108–153; BP diastolic 57–79
--- NOTE | 2020-03-30 00:24 | NUR ---
Patient had a BM. Feels much better. Resting and no chest pain.
[2020-03-30 05:17] LABS: BASOPHILS % (AUTO) 0.2 % (0-1); EOSINOPHILS # (AUTO) 0.2 X10'3 (0-0.9); EOSINOPHILS % (AUTO) 1.7 % (0-6); HEMATOCRIT 34.4 % (42.0-52.0); HEMOGLOBIN 11.5 g/dl (14.0-17.9); LYMPHOCYTES % (AUTO) 13.7 % (21-51); MEAN CORPUSCULAR HEMOGLOBIN 30.5 PG (27.0-31.0); MEAN CORPUSCULAR HGB CONC 33.6 g/dL (33.0-36.5); MEAN CORPUSCULAR VOLUME 90.9 FL (78-98); MEAN PLATELET VOLUME 9.8 FL (7.4-10.4); MONOCYTES % (AUTO) 13.6 % (2-12); NEUTROPHILS # (AUTO) 10.4 X10'3 (1.8-7.7); NEUTROPHILS % (AUTO) 70.8 % (42-75); PLATELET COUNT 118 X10'3 (140-440); RED BLOOD COUNT 3.78 X10'6 (4.70-6.10); RED CELL DISTRIBUTION WIDTH 13.5 % (11.5-14.5); WHITE BLOOD COUNT 14.7 X10'3 (4.5-11.0)
[2020-03-30 05:38] LABS: ALBUMIN 3.2 G/DL (3.4-5.0); ANION GAP 5 (8-16); BLOOD UREA NITROGEN 25 MG/DL (7-18); BUN/CREATININE RATIO 21.2 (5.4-32.0); CALCIUM 8.4 MG/DL (8.5-10.1); CHLORIDE 102 MMOL/L (99-107); CREATININE 1.18 MG/DL (0.60-1.10); GLUCOSE 106 MG/DL (70-104); PHOSPHORUS 2.7 MG/DL (2.3-4.5); POTASSIUM 4.1 MMOL/L (3.5-5.1); SODIUM 137 MMOL/L (135-145); TOTAL CARBON DIOXIDE 30.4 MMOL/L (24-32); eGFR 62 ML/MIN
--- NOTE | 2020-03-30 06:21 | NUR ---
Problems reprioritized. Patient report given to Marylu, questions answered & plan of care reviewed with .
[2020-03-30] MEDS: sennosides/docusate sodium tablet PO SCH ×2 (07:55→21:15)
[2020-03-30] MEDS: HYDROcodone/acetaminophen 10/325mg tab PO PRN ×4 (07:56→22:13)
[2020-03-30] MEDS: atorvastatin 10mg tablet PO SCH (07:56)
[2020-03-30] MEDS: aspirin 81mg tablet.DR PO SCH (07:56)
[2020-03-30] MEDS: pantoprazole 40mg Tablet.DR PO SCH (07:56)
[2020-03-30] MEDS: metoprolol tartrate 12.5mg (1/2 tablet) PO SCH ×2 (07:56→21:14)
[2020-03-30] MEDS: magnesium 4gm in 100ml NS 100 ML IV PRN (07:56)
[2020-03-30] MEDS ORDERED: furosemide 40mg/4ml inj IV ONE (09:55)
--- NOTE | 2020-03-30 18:27 | NUR ---
Received report from Jhonny BOLDEN
[2020-03-30] MEDS ORDERED: lisinopril 5mg tablet PO SCH (21:00)
[2020-03-31] VITALS (9 sets, daily range): BP systolic 102–127; BP diastolic 45–67
[2020-03-31 06:29] LABS: BASOPHILS # (AUTO) 0.1 X10'3 (0-0.2); BASOPHILS % (AUTO) 0.6 % (0-1); EOSINOPHILS # (AUTO) 0.4 X10'3 (0-0.9); EOSINOPHILS % (AUTO) 3.2 % (0-6); HEMATOCRIT 34.3 % (42.0-52.0); HEMOGLOBIN 11.6 g/dl (14.0-17.9); LYMPHOCYTES # (AUTO) 2.1 X10'3 (1.1-4.8); LYMPHOCYTES % (AUTO) 16.9 % (21-51); MEAN CORPUSCULAR HEMOGLOBIN 30.7 PG (27.0-31.0); MEAN CORPUSCULAR HGB CONC 33.9 g/dL (33.0-36.5); MEAN CORPUSCULAR VOLUME 90.4 FL (78-98); MONOCYTES # (AUTO) 1.6 X10'3 (0-0.9); MONOCYTES % (AUTO) 12.3 % (2-12); NEUTROPHILS # (AUTO) 8.5 X10'3 (1.8-7.7); PLATELET COUNT 150 X10'3 (140-440); RED BLOOD COUNT 3.79 X10'6 (4.70-6.10); RED CELL DISTRIBUTION WIDTH 13.4 % (11.5-14.5); WHITE BLOOD COUNT 12.7 X10'3 (4.5-11.0)
[2020-03-31 06:58] LABS: ANION GAP 4 (8-16); BLOOD UREA NITROGEN 27 MG/DL (7-18); BUN/CREATININE RATIO 23.3 (5.4-32.0); CALCIUM 8.4 MG/DL (8.5-10.1); CHLORIDE 101 MMOL/L (99-107); CREATININE 1.16 MG/DL (0.60-1.10); GLUCOSE 104 MG/DL (70-104); MAGNESIUM 2.4 MG/DL (1.5-2.4); PHOSPHORUS 3.2 MG/DL (2.3-4.5); POTASSIUM 4.1 MMOL/L (3.5-5.1); SODIUM 137 MMOL/L (135-145); TOTAL CARBON DIOXIDE 32.5 MMOL/L (24-32); eGFR 63 ML/MIN
[2020-03-31] MEDS: metoprolol tartrate 12.5mg (1/2 tablet) PO SCH (07:46)
[2020-03-31] MEDS: HYDROcodone/acetaminophen 10/325mg tab PO PRN (07:47)
[2020-03-31] MEDS: atorvastatin 10mg tablet PO SCH (07:47)
[2020-03-31] MEDS: aspirin 81mg tablet.DR PO SCH (07:47)
[2020-03-31] MEDS: pantoprazole 40mg Tablet.DR PO SCH (07:47)
[2020-03-31] MEDS: sennosides/docusate sodium tablet PO SCH (07:48)
[2020-03-31] MEDS ORDERED: SENN-166 PO (08:14)
[2020-03-31] MEDS ORDERED: HYDR-4353 PO (08:14)
[2020-03-31] MEDS: Insulin Reg/NS 100units/100mL 100 ML IV SCH (09:30)
[2020-03-31] MEDS: sodium chloride 0.45% 1,000 ML IV SCH (10:20)
--- NOTE | 2020-03-31 10:30 | NUR ---
patient stable for discharge. all discharge instructions and education reviewed with patient and all questions answered. New prescriptions electronically transmitted to preferred pharmacy. PIV discontinued, canula intact, dressing clean dry and intact. patient tolerated well. Telemetry monitoring removed. All known belongings collected and sent with patient. patient wheeled to [facility]V driven by patients daughter. wrist bands removed.
== END 2020-03-31 10:30 | disposition home health service (06) | DRG 234 ==
LOC: U 05:57 → MED 3N 05:57 → PCU 3S 14:00 → U 03-25 10:15 → PCU 3S 03-25 10:15 → ICU 2S 03-27 09:16
PROVIDERS: ADMIT Thoracic Surgery (Cardiothoracic Vascular Surgery); ATTEND Internal Medicine Interventional Cardiology
PROC: 4A023N7 Measurement of Cardiac Sampling and Pressure, Left Heart, Percutaneous Approach (ICD-10-PCS; 2020-03-24)
PROC: B2111ZZ Fluoroscopy of Multiple Coronary Arteries using Low Osmolar Contrast (ICD-10-PCS; 2020-03-24)
PROC: B2151ZZ Fluoroscopy of Left Heart using Low Osmolar Contrast (ICD-10-PCS; 2020-03-24)
PROC: 021109W Bypass Coronary Artery, Two Arteries from Aorta with Autologous Venous Tissue, Open Approach (ICD-10-PCS; 2020-03-27)
PROC: 06BP4ZZ Excision of Right Saphenous Vein, Percutaneous Endoscopic Approach (ICD-10-PCS; 2020-03-27)
PROC: B24BZZ4 Ultrasonography of Heart with Aorta, Transesophageal (ICD-10-PCS; 2020-03-27)
PROC: 5A1221Z Performance of Cardiac Output, Continuous (ICD-10-PCS; 2020-03-27)
PROC: 02HV33Z Insertion of Infusion Device into Superior Vena Cava, Percutaneous Approach (ICD-10-PCS; 2020-03-27)
PROC: B548ZZA Ultrasonography of Superior Vena Cava, Guidance (ICD-10-PCS; 2020-03-27)
PROC: 02HP32Z Insertion of Monitoring Device into Pulmonary Trunk, Percutaneous Approach (ICD-10-PCS; 2020-03-27)
PROC: 4A133B3 Monitoring of Arterial Pressure, Pulmonary, Percutaneous Approach (ICD-10-PCS; 2020-03-27)
PROC: 4A1239Z Monitoring of Cardiac Output, Percutaneous Approach (ICD-10-PCS; 2020-03-27)
PROC: 02100Z9 Bypass Coronary Artery, One Artery from Left Internal Mammary, Open Approach (ICD-10-PCS; principal; 2020-03-27 06:50)
DX: I25.119 Atherosclerotic heart disease of native coronary artery with unspecified angina pectoris (principal); I12.9 Hypertensive chronic kidney disease with stage 1 through stage 4 chronic kidney disease, or unspecified chronic kidney disease; N18.3 Chronic kidney disease, stage 3 (moderate); E78.00 Pure hypercholesterolemia, unspecified; E78.5 Hyperlipidemia, unspecified; N40.0 Benign prostatic hyperplasia without lower urinary tract symptoms; Z82.3 Family history of stroke
CPT/HCPCS: 0232T; 93312; 93325; 93458; Z7506; Z7508; 36415; 36600; 71045; 71046; 80048; 80053; 80061; 81003; 82330; 82435; 82803; 82947; 82948; 83036; 83735; 84100; 84132; 84295; 85018; 85025; 85347; 85384; 85610; 85730; 86885; 86900; 86901; 86920; 87081; 93005; 93880; 93971; 94002; 94010; 94667; 94760; 97116; 97161; 97530; 99152; A4618; A5120; A6258; A6402; A6449; A7000; A7048; C1713; C1751; C1769; C1894; C9113; G0378; J0690; J1265; J1644; J1815; J1940; J2001; J2150; J2250; J2270; J2370; J2440; J2704; J2720; J2930; J3010; J3370; J3475; J3480; J3490; J7030; J7040; J7050; J7060; J7120; P9045; P9047; Q0163; Q9967

== ENCOUNTER 2020-04-13 | Emergency (ER) | payer OTHER ==
[~2020-04-13] VITALS: Ht 180.3 cm; Wt 93.2 kg
[~2020-04-13] MED LIST: ASPI81TA52 PO; BENA10TA74 PO; HYDR-4353 PO; METO25TA6 PO; SENN-166 PO; SIMV10TA98 PO
[2020-04-13 00:47] LABS: BASOPHILS # (AUTO) 0.2 X10'3 (0-0.2); BASOPHILS % (AUTO) 1.5 % (0-1); EOSINOPHILS # (AUTO) 0.3 X10'3 (0-0.9); EOSINOPHILS % (AUTO) 2.5 % (0-6); HEMATOCRIT 37.7 % (42.0-52.0); HEMOGLOBIN 12.7 g/dl (14.0-17.9); LYMPHOCYTES # (AUTO) 1.9 X10'3 (1.1-4.8); LYMPHOCYTES % (AUTO) 16.8 % (21-51); MEAN CORPUSCULAR HEMOGLOBIN 30.3 PG (27.0-31.0); MEAN CORPUSCULAR HGB CONC 33.7 g/dL (33.0-36.5); MEAN CORPUSCULAR VOLUME 89.7 FL (78-98); MEAN PLATELET VOLUME 8.4 FL (7.4-10.4); MONOCYTES % (AUTO) 9.3 % (2-12); NEUTROPHILS # (AUTO) 7.8 X10'3 (1.8-7.7); NEUTROPHILS % (AUTO) 69.9 % (42-75); PLATELET COUNT 399 X10'3 (140-440); RED CELL DISTRIBUTION WIDTH 13.7 % (11.5-14.5); WHITE BLOOD COUNT 11.1 X10'3 (4.5-11.0)
[2020-04-13 00:57] LABS: ALANINE AMINOTRANSFERASE 44 U/L (12-78); ALBUMIN 3.3 G/DL (3.4-5.0); ALKALINE PHOSPHATASE 193 IU/L (46-116); ANION GAP 11 (8-16); ASPARTATE AMINO TRANSFERASE 18 U/L (10-37); BILIRUBIN,TOTAL 0.3 MG/DL (0.1-1.0); BLOOD UREA NITROGEN 24 MG/DL (7-18); CALCIUM 8.8 MG/DL (8.5-10.1); CHLORIDE 105 MMOL/L (99-107); GLUCOSE 153 MG/DL (70-104); POTASSIUM 3.7 MMOL/L (3.5-5.1); SODIUM 137 MMOL/L (135-145); TOTAL CARBON DIOXIDE 21.5 MMOL/L (24-32); TOTAL PROTEIN 6.7 G/DL (6.4-8.2); eGFR 47 ML/MIN
[2020-04-13] MEDS ORDERED: normal saline 1000ML IV soln IVB ONE (01:15)
[2020-04-13] MEDS ORDERED: HYDR-4353 PO (02:53)
[2020-04-13] MEDS ORDERED: ONDA4TAB6 PO (02:53)
[2020-04-13 02:55] LABS: CLARITY,URINE SLIGHTLY CLOUDY (Clear); COLOR,URINE YELLOW (Yellow); GLUCOSE, URINE NEGATIVE (Neg); KETONES,URINE NEGATIVE (Neg); LEUKOCYTE ESTERASE ,URINE NEGATIVE (Neg); NITRITES, URINE NEGATIVE (Neg); OCCULT BLOOD,URINE LARGE (Neg); PROTEIN,URINE 30 mg/dl (Neg); UROBILINOGEN,URINE 0.2 E.U/dL (0.2-1.0)
[2020-04-13 03:02] LABS: UA COLLECTION TYPE CLN CATCH MIDSTREAM
[2020-04-13 03:06] LABS: WBC,URINE 0-4 /HPF (0-4)
[2020-04-13 03:07] LABS: BACTERIA,URINE FEW /HPF (Neg); RBC,URINE 50-100 /HPF (0-2); SQUAMOUS EPITHELIAL CELL,UR FEW /LPF (FEW)
[2020-04-13 03:19] VITALS: BP 127/66
== END 2020-04-13 03:11 | disposition home or self-care (01) ==
LOC: ER 00:01
DX: N13.2 Hydronephrosis with renal and ureteral calculous obstruction (principal); R79.89 Other specified abnormal findings of blood chemistry; Z95.0 Presence of cardiac pacemaker; Z79.82 Long term (current) use of aspirin; Z79.899 Other long term (current) drug therapy
CPT/HCPCS: 36415; 74176; 80053; 81001; 85025; 99284; J7030